=== PATIENT | male | born 1955 | race African-American/Black ===

== ENCOUNTER 2020-12-30 21:24 | Emergency (ER) | payer SELFPAY ==
[~2020-12-30] VITALS: Ht 167.6 cm; Wt 61.0 kg
[2020-12-31 02:51] LABS: BASOPHILS % 1.4 % (0.0-2.0); EOSINOPHILS % 2.9 % (0.0-5.0); HEMATOCRIT. 40.3 % (42.0-52.0); HEMOGLOBIN. 13.2 g/dL (14.0-18.0); LYMPHOCYTES % 40.4 % (20.0-50.0); MEAN CORPUSCULAR HEMOGLOBIN 29.5 pg (28.0-32.0); MEAN PLATELET VOLUME 7.3 fl (7.4-10.4); MONOCYTES % 11.4 % (2.0-8.0); NEUTROPHILS % 43.9 % (40.0-76.0); PLATELET 342 x1000/uL (130-400); RED BLOOD CELL COUNT 4.48 mill/uL (4.7-6.1); RED CELL DISTRIBUTION WIDTH 16.1 % (11.6-14.6)
[2020-12-31] MEDS ORDERED: ACETAMINOPHEN 325MG TABLET PO STA (02:52)
[2020-12-31 02:58] LABS: CHLORIDE 109 mEq/L (98-107)
[2020-12-31 03:00] LABS: ETHANOL BLOOD < 10 mg/dL
[2020-12-31] MEDS ORDERED: TOPUD PO (03:31)
[2020-12-31 05:13] VITALS: BP 130/60
== END 2020-12-31 05:14 | disposition home or self-care (01) ==
LOC: ER 21:24
DX: S80.212A Abrasion, left knee, initial encounter (principal); M25.562 Pain in left knee; X58.XXXA Exposure to other specified factors, initial encounter; Y93.89 Activity, other specified; Y92.89 Other specified places as the place of occurrence of the external cause; Y99.8 Other external cause status
CPT/HCPCS: 36415; 80053; 80320; 85025; 93005; 99284; G0480